=== PATIENT | female | born 1990 | race Caucasian/White ===

== ENCOUNTER 2018-11-13 09:13 | Emergency (ER) | payer SELFPAY, OTHER ==
[2018-11-13] MEDS: ONDANSETRON (ODT) 4 MG TAB ODT (10:15)
[2018-11-13] MEDS: KETOROLAC 60 MG INJ IM (10:15)
== END 2018-11-13 10:51 | disposition home or self-care (01) ==
LOC: FTE 09:13
DX: J34.89 Other specified disorders of nose and nasal sinuses (principal)
CPT/HCPCS: 96372; 99284-25